=== PATIENT | female | born 1950 | race Two or more races ===

== ENCOUNTER → 2024-06-20 | Outpatient (CLI) | payer MEDICARE, MEDICAID, SELFPAY ==
--- NOTE | 2024-06-20 14:48 | XR_ITS ---
Examination: Forearm, right, 2 views. Technique: Forearm, AP, lateral 2 views Date and time of exam: June,, 2024, 1511 hrs. Indications: Right forearm pain 5 months Findings: Extensive dystrophic soft tissue calcification dorsal elbow and forearm Moderate osteopenia. No fracture Impression: Extensive dystrophic soft tissue calcification
--- NOTE | 2024-06-20 14:48 | XR_ITS ---
Examination: Hand, right 3 views Technique: Hand AP, oblique, lateral 3 views Date and time of exam: June 20, 2024 1500 hrs. Indications: Right hand pain beginning 5 minutes ago. Findings: Severe osteopenia Fusion proximal interphalangeal joint fourth digit and significant erosive arthritis distal interphalangeal joints second digit Dystrophic ossification in the soft tissue adjacent to the proximal phalanx first digit Impression: Severe osteopenia Significant arthritic change as above
--- NOTE | 2024-06-20 14:48 | XR_ITS ---
Examination: Wrist, right 3 views Technique: Wrist AP, oblique, lateral 3 views Date and time of exam: June,, 2024, 1511 hrs. Indications: Right wrist pain beginning 5 minutes ago. Findings: Dystrophic ossification in the soft tissue adjacent to the ulnar shaft Diffuse moderate narrowing radiocarpal intercarpal and carpometacarpal joints Dystrophic soft tissue ossification adjacent proximal phalanx first digit Severe osteopenia Impression: Diffuse narrowing joints of the wrist
== END | disposition home or self-care (01) ==
PROVIDERS: PCP Physician Assistant
DX: M79.9 Soft tissue disorder, unspecified (principal); M85.841 Other specified disorders of bone density and structure, right hand; M13.841 Other specified arthritis, right hand; M25.831 Other specified joint disorders, right wrist
CPT/HCPCS: 73090; 73110; 73130